=== PATIENT | female | born 1965 | race Hispanic/Latino ===

== ENCOUNTER 2023-12-14 08:35 | Observation (INO) | payer BC ==
--- OUTSIDE RECORDS SUMMARY | 2023-12-14 08:38 | XMS REPORT | Continuity of Care Document ---
Author Name Unknown Address [address] [place] [address] thconnect Address 1200 [facility] 1 495 [place] [address] Care Team Providers Care Repairing Calibrator Name Role Phone GERMAIN FERGUSON Attending Clinician Unavaila PARISH Bond Attending Clinician Unavailable ASTON Attending Clinician Unavailable Axel Attending Clinician Unavailable CLARA EAGLE Attending Clinician Unavailable SHANNAN ORTEGA Attending Clinician Unavailable GERMAIN FERGUSON Admitting Clinician Unavaildavian CLANCY Admitting Clinician Unavailable Axel Admitting Clinician Unavailable Payers Payer Name Policy Type Policy Number Effective Date Expirati on Date Source [place] [id number] 2015 00:00:00 Problems Condition Name Condition Details Condition Category Status Onset Date Resolution Date Last Treatment Date Treating Clinician Comments Source Microscopi c hematuria Microscopi c Hematuria Problem Active 03-30 00:00: 00 [facility] Gynecologi c examinatio n Gynecologi c Examinatio n Problem Active 03-30 00:00: 00 [facility] Screening for malignant neoplasm of breast Screening for Malignant Neoplasm of Breast Problem Active 03-30 00:00: 00 [facility] Carpal tunnel syndrome Carpal Tunnel Syndrome Problem Active [facility] Urinary tract infectious disease Urinary Tract Infectious Disease Problem Active [facility] Elevated blood-pres sure reading without diagnosis of hypertensi on Elevated Blood-pres sure Reading without Diagnosis of Hypertensi on Problem Active [facility] Social History Smoking Status Start Date Stop Date Source Never Smoker [facility] Vital Signs Vital Name Observation Time Observation Value Comments S ource BP Diastolic 2018-03-30 00:00:00 88 mm[Hg] [facility] Height 2018-03-30 00:00:00 60 [facility]in_i[facility] BMI (Body Mass Index) 2018-03-30 00:00:00 27.7 kg/m2 [facility] dical [facility] BP Systolic 2018-03-30 00:00:00 142 mm[Hg] [facility] Body Weight 2018-03-30 00:00:00 142 [lb_av] [facility] Procedures Procedure Date / Time Performed Performing Clinicia n Source unlisted imaging order 2018-03-30 00:00:00 [facility] Plan of Care Planned Activity Planned Date Details Comments Source Diagnostic Test Pending 2018-03-30 00:00:00 pap test, thinprep, cervical [code = pap test, thinprep, cervical] [facility] Diagnostic Test Pending 2018-03-30 00:00:00 urinalysis, dipstick [code = urinalysis, dipstick] [facility] Diagnostic Test Pending 2018-03-30 00:00:00 culture, urine [code = culture, urine] [facility] Encounters Start Date/Time End Date/Time Encounter Type Admission Type Attending Clinicians Care Facility Care Department Encounter ID Source 2023-12-12 02:31:00 2023-12-13 16:20:00 Inpatient ER [facility]DRAKIR[facility] MED [id number] [facility] 2022-06-16 23:22:00 2022-06-17 04:39:00 Emergency ER PARISH OBRIEN [facility] [id number] [facility] 2021-10-01 09:52:00 2021-10-01 09:52:00 Outpatient LISTER_MELI SSA SABINO GALLO [id number] [facility] Program 2019-03-30 01:36:00 2019-03-30 01:36:00 Outpatient G_Pappas MMG MMG [id number] [facility] 2018-03-30 13:22:00 2018-03-30 13:22:00 Outpatient CLARA BHATTI [facility] [id number] [facility] 2018-03-30 00:00:00 2018-03-30 00:00:00 Clara Eagle, WHNP: [address] [place] [address] , Ph. [phone] [facility] [place] [id number] [facility] 2017-01-04 10:14:00 2017-01-04 10:14:00 Outpatient SHANNAN BROOKS [facility] [id number] [facility] 2016-01-29 11:24:00 2016-01-29 11:24:00 Outpatient SHANNAN BROOKS [facility] [id number] [facility] Results Test Description Test Time Test Comments Results Result Co mments Source [facility]
[2023-12-14 09:14] LABS: Absolute Basophils 0.1 K/uL (0-0.5); Absolute Eosinophils 0.1 K/uL (0-0.5); Absolute Lymphocytes (CBC) 1.5 K/uL (0.7-4.9); Absolute Monocytes 0.5 K/uL (0.1-1.3); Basophils % 0.9 % (0-1.3); Eosinophils % 1.2 % (0-4.4); Hematocrit 44.1 % (36.0-45.0); Hemoglobin 14.7 g/dL (12.0-15.0); Lymphocytes % 20.7 % (15.3-44.8); MCH 27.9 pg (27.0-35.0); MCHC 33.3 g/dL (32.0-36.0); MCV 83.9 fL (80-100); MPV 7.2 fL (7.6-11.3); Monocytes % 7.6 % (3.3-12.3); Neutrophils % 69.6 % (41.7-73.7); Nucleated Red Blood Cells % 0.2 % (0-0); Platelets 310 thou/uL (152-406); RBC Red Blood Cell Count 5.25 M/uL (3.86-4.86); Red Cell Distribution Width 12.8 % (12.1-15.2)
[2023-12-14 09:15] LABS: PT Prothrombin Time 11.8 SECONDS (9.4-12.5); Protime INR 1.06
[2023-12-14 09:32] LABS: Anion Gap 8.3 mEq/L (5.0-15.0); Potassium 3.3 mEq/L (3.5-5.1); Troponin High Sensitivity 8.4 pg/mL (<58.9)
--- NOTE | 2023-12-14 09:35 | ER ---
Nurse's Notes [facility] Name: Yen Rain Age: 58 yrs Sex: Female : 1965 Arrival Date: 12/14/2023 Time: 08:35 Bed 14 Private MD: Diagnosis: Unstable angina Presentation: 12/13 08:45 Chief complaint: Patient states: SENT BY DR MICHEL FOR HEART CATH, ABNORMAL STRESS TEST bp YESTERDAY. Coronavirus screen: At this time, the client does not indicate any symptoms associated with coronavirus-19. Ebola Screen: No symptoms or risks identified at this time. Initial Sepsis Screen: Does the patient meet any 2 criteria? No. Patient's initial sepsis screen is negative. Does the patient have a suspected source of infection? No. Patient's initial sepsis screen is negative. Risk Assessment: Do you want to hurt yourself or someone else? Patient reports no desire to harm self or others. Onset of symptoms is unknown. 08:45 Method Of Arrival: Ambulatory bp 08:45 Acuity: HANSA 3 bp Triage Assessment: 08:47 General: Appears in no apparent distress. Behavior is appropriate for age. Pain: bp Complains of pain in chest. EENT: No deficits noted. Neuro: No deficits noted. Cardiovascular: Rhythm is sinus rhythm. Respiratory: No deficits noted. GI: No signs and/or symptoms were reported involving the gastrointestinal system. : No signs and/or symptoms were reported regarding the genitourinary system. Derm: No deficits noted. Historical: - Allergies: 08:47 No Known Allergies; bp - Home Meds: 08:47 None [Active]; bp - PMHx: 08:47 None; bp - Immunization history:: Adult Immunizations up to date. - Infectious Disease History:: Denies. - Social history:: Smoking status: Patient denies any tobacco usage or history of. Screenin:48 [facility] ED Fall Risk Assessment (Adult) History of falling in the last 3 months, bp including since admission No falls in past 3 months (0 pts) Confusion or Disorientation No (0 pts) Intoxicated or Sedated No (0 pts) Impaired Gait No (0 pts) Mobility Assist Device Used No (0 pt) Altered Elimination No (0 pt) Score/Fall Risk Level 0 - 2 = Low Risk. Abuse screen: Denies threats or abuse. Denies injuries from another. Nutritional screening: No deficits noted. Tuberculosis screening: No symptoms or risk factors identified. Assessment: 09:24 Reassessment: Patient appears in no apparent distress at this time. Patient and/or db family updated on plan of care and expected duration. Pain level reassessed. Patient is alert, oriented x 3, equal unlabored respirations, skin warm/dry/pink. Reassessment: SENT BY SUPPLY CHAIN DEVELOPMENT MANAGER. STATES HAD CHEST PAIN LAST TUESDAY. General: Appears in no apparent distress. comfortable, Behavior is calm, cooperative. 09:54 Reassessment: Patient appears in no apparent distress at this time. Patient and/or db family updated on plan of care and expected duration. Pain level reassessed. Patient is alert, oriented x 3, equal unlabored respirations, skin warm/dry/pink. Pain: Denies pain. Pain does not radiate. Pain began gradually, 2-3 days ago. 11:42 Reassessment: Pt leaving with dairy laboratory technician nurses at this time. Pt A\T\Ox4. cm10 Vital Signs: 08:45 BP 158 / 88; Pulse 61; Resp 16; Temp 97.9; Pulse Ox 97% ; bp 09:00 BP 119 / 76; Pulse 56; Resp 16; Pulse Ox 97% on R/A; db 09:24 Weight 70.31 kg (M); Height 4 ft. 11 in. ; db 11:00 BP 124 / 71; Pulse 60; Resp 19; Pulse Ox 96% on R/A; cm10 09:24 Body Mass Index 31.31 (70.31 kg, 149.86 cm) db ED Course: 08:39 Patient arrived in ED. mr 08:42 Carolin Tolbert, RN is Primary Nurse. db 08:46 Triage completed. bp 08:48 Arm band placed on. bp 08:48 Patient has correct armband on for positive identification. bp 08:51 Bernice Zimmer MD is Attending Physician. sd2 09:03 Initial lab(s) drawn, by me, sent to lab. Inserted saline lock: 20 gauge in right db antecubital area, using aseptic technique. Blood collected. Flushed with 10 mL NS. 09:34 Bernice Zimmer MD is Hospitalizing Provider. sd2 09:34 Arabella Diamond MD is Hospitalizing Provider. sd2 09:54 Provided Education on: BUSINESS MANAGEMENT INTERN AND ADMISSION. Client placed on continuous cardiac and db pulse oximetry monitoring. NIBP monitoring applied. teletypesetter monitor on. Pulse ox on. NIBP on. Warm blanket given. Pillow given. :54 No provider procedures requiring assistance completed. Patient maintains SpO2 db saturation greater than 95% on room air. 09:56 XRAY Chest (1 view) In Process Unspecified. EDMS 11:00 Report given to AMAN GUERRIER. db 11:41 Patient admitted, IV remains in place. cm10 Administered Medications: No medications were administered Medication: :54 VIS not applicable for this client. db Outcome: 09:35 Decision to Hospitalize by Provider. sd2 11:41 Admitted to Tent Worker accompanied by nurse, on monitor, cm10 11:41 Condition: good 11:41 Instructed on the need for admit, 11:42 Patient left the ED. cm10 Signatures: Dispatcher [employer] EDAL Smiley Robbins, Reg Reg mr Dino Davidson, RN RN Bernice Pickett MD MD sd2 Carolin Tolbert, AMAN RN Lynn Boggs RN RN cm10
--- NOTE | 2023-12-14 09:35 | EDPHYS ---
Physician Documentation [facility] Name: Yen Rain Age: 58 yrs Sex: Female : 1965 Arrival Date: 12/14/2023 Time: 08:35 Bed 14 Private MD: ED Physician Bernice Zimmer HPI: 12/13 09:24 This 58 yrs old Female presents to ER via Ambulatory with complaints of Chest sd2 Pain. 09:24 58 yo F presents with CC of abnormal stress test. Seen at [facility] on Tuesday for chest sd2 pain and admitted and had abnormal stress test. Told to follow up outpatient. Spoke with Dr. Medeiros, Cardiology, who sent her to the ER to be admitted for heart cath. CP has now resolved and patient with no current symptoms.. Historical: - Allergies: 08:47 No Known Allergies; bp - Home Meds: 08:47 None [Active]; bp - PMHx: 08:47 None; bp - Immunization history:: Adult Immunizations up to date. - Infectious Disease History:: Denies. - Social history:: Smoking status: Patient denies any tobacco usage or history of. ROS: 09:24 Constitutional: Negative for fever, chills, and weight loss, Eyes: Negative for injury, sd2 pain, redness, and discharge, Cardiovascular: Positive for chest pain, Negative for palpitations, and edema, Respiratory: Negative for shortness of breath, cough, wheezing. Abdomen/GI: Negative for abdominal pain, nausea, vomiting, diarrhea. MS/Extremity: Negative for injury and deformity, Skin: Negative for injury, rash, and discoloration, Neuro: Negative for headache, numbness and tingling. Exam: 09:24 Constitutional: This is a well developed, well nourished patient who is awake, alert, sd2 and in no acute distress. Head/Face: Normocephalic, atraumatic. Eyes: EOMI, normal conjunctiva bilaterally Chest/axilla: Normal chest wall appearance and motion. Nontender with no deformity. Cardiovascular: Regular rate and rhythm with a normal S1 and S2. No gallops, murmurs, or rubs. 2+ distal pulses. Respiratory: Lungs have equal breath sounds bilaterally, clear to auscultation and percussion. No rales, rhonchi or wheezes noted. No increased work of breathing, no retractions or nasal flaring. Abdomen/GI: Soft, non-tender, with normal bowel sounds. No guarding or rebound. No evidence of tenderness throughout. Skin: Warm, dry with normal turgor. Normal color with no rashes, no lesions, and no evidence of cellulitis. MS/ Extremity: Pulses equal, no cyanosis. Neurovascular intact. Full, normal range of motion. Psych: Awake, alert, with orientation to person, place and time. Behavior, mood, and affect are within normal limits. 09:24 ECG was reviewed by the Attending Physician. NSR, rate 60, no STEMI criteria Vital Signs: 08:45 BP 158 / 88; Pulse 61; Resp 16; Temp 97.9; Pulse Ox 97% ; bp 09:00 BP 119 / 76; Pulse 56; Resp 16; Pulse Ox 97% on R/A; db 09:24 Weight 70.31 kg (M); Height 4 ft. 11 in. ; db 11:00 BP 124 / 71; Pulse 60; Resp 19; Pulse Ox 96% on R/A; cm10 09:24 Body Mass Index 31.31 (70.31 kg, 149.86 cm) db MDM: 08:51 Patient medically screened. sd2 09:24 Differential diagnosis: Unstable angina, ACS, PTX, PE, dissection among others. HEART sd2 Score: History: Highly Suspicious (2), ECG: Normal (0), Age: > 45 and < 65 years (1), Risk Factors: 1 or 2 risk factors (1), Troponin: < or = 1 x Normal Limit (0), Total Score = 4. Data reviewed: vital signs, nurses notes, lab test result(s), EKG, radiologic studies. Management of patient was discussed with the following: Hospitalist: . Milk Delivery Driver: Dr. Medeiros. Historians other than the Patient: Daughter/Son: Son at , also acts as heavy mobile equipment repairer. 09:34 Counseling: I had a detailed discussion with the patient and/or guardian regarding the sd2 historical points, exam findings, and any diagnostic results supporting the discharge/admit diagnosis, lab results, radiology results, the need for further work-up and treatment in the hospital. 12/13 08:49 Order name: Basic Metabolic Panel; Complete Time: 09:33 bp 12/13 08:49 Order name: CBC with Diff; Complete Time: 09:33 bp 12/13 08:49 Order name: NT PRO-BNP; Complete Time: 09:33 bp 12/13 08:49 Order name: PT-INR; Complete Time: 09:16 bp 12/13 08:49 Order name: Troponin HS; Complete Time: 09:33 bp 12/13 10:17 Order name: Basic Metabolic Panel EDMS 12/13 10:17 Order name: Basic Metabolic Panel EDMS 12/13 10:17 Order name: Basic Metabolic Panel EDMS 12/13 10:17 Order name: CBC with Automated Diff EDMS 12/13 10:17 Order name: CBC with Automated Diff EDMS 12/13 10:17 Order name: CBC with Automated Diff EDMS 12/13 10:17 Order name: Lipid Profile EDMS 12/13 10:17 Order name: Lipid Profile; Complete Time: 17:39 EDMS 12/13 08:49 Order name: XRAY Chest (1 view); Complete Time: 10:02 bp 12/13 10:17 Order name: Echo with Doppler EDMS 12/13 08:49 Order name: EKG; Complete Time: 08:50 bp 12/13 10:17 Order name: CONS Physician Consult EDMS 12/13 08:49 Order name: Cardiac monitoring; Complete Time: 08:56 bp 12/13 08:49 Order name: EKG - Nurse/Tech; Complete Time: 08:56 bp 12/13 08:49 Order name: IV Saline Lock; Complete Time: 09:09 bp 12/13 08:49 Order name: Labs collected and sent; Complete Time: 09:09 bp 12/13 08:49 Order name: O2 Per Protocol; Complete Time: 08:56 bp 12/13 08:49 Order name: O2 Sat Monitoring; Complete Time: 08:56 bp Administered Medications: No medications were administered Disposition Summary: 12/14/23 09:35 Hospitalization Ordered Notes: Hospitalization Status: Inpatient Admission sd2 Provider: Arabella Diamond Location: Telemetry/MedSurg (Inpatient) sd2 Condition: Stable sd2 Problem: new sd2 Symptoms: have improved sd2 Bed/Room Type: Standard sd2 Room Assignment: sd2 Diagnosis - Unstable angina sd2 Forms: - Medication Reconciliation Form sd2 - SBAR form sd2 - Leadership Thank You Letter sd2 Signatures: Dispatcher [employer] EDMS Dino Davidson, RN RN Bernice Pickett MD MD sd2 Corrections: (The following items were deleted from the chart) 08:50 08:50 BASIC METABOLIC PANEL+C.LAB.BRZ ordered. EDMS EDMS 08:50 08:50 CBC+H.LAB.BRZ ordered. EDMS EDMS 08:50 08:50 PROBNP+C.LAB.BRZ ordered. EDMS EDMS 08:50 08:50 PROTIME (+INR)+COAG.LAB.BRZ ordered. EDMS EDMS 08:50 08:50 Troponin High Sensitivity+C.LAB.BRZ ordered. EDMS EDMS
--- NOTE | 2023-12-14 09:41 | P.HP ---
Certification for Inpatient Patient admitted to: Observation With expected LOS: <2 Midnights Patient will require the following post-hospital care: None Practitioner: I am a practitioner with admitting privileges, knowledge of patient current condition, hospital course, and medical plan of care. Services: Services provided to patient in accordance with Admission requirements found in Title 42 Section 412.3 of the Code of Federal Regulations <Radha Perez - Last Filed: 12/14/23 09:58> Patient History Date of Service: 12/14/23 Reason for admission: Abnormal stress test History of Present Illness: Ms. Rain is a 58-year-old female with no past medical history. She takes no medications, and has had no surgeries. On Tuesday evening/night she developed some chest pain and shortness of breath that lasted roughly 30 minutes and prompted her to be seen at [facility]. While there she had a stress test with abnormal results. She went to see Dr. Medeiros today and was sent to the emergency department for a cardiac cath shortly. Ms. Rain has had no continuation or repeat of symptoms. EKG in the emergency department today with nonspecific ST changes, labs within normal except a potassium of 3.3. Chest x- ray with no acute abnormality. She has been n.p.o. since midnight and will be admitted for continuation of care. Home medications list reviewed: Yes (None) - Past Medical/Surgical History Has patient received pneumonia vaccine in the past: No Past Medical History: Patient denies medical history Past Surgical History: Patient denies surgical history Psychosocial/ Personal History: Lives at home. Her son, Edd, works in the [employer]. - Social History Smoking Status: Never smoker CD- Drugs: No Caffeine use: Yes Place of Residence: Home <Radha Perez - Last Filed: 12/14/23 09:58> Date of Service: 12/14/23 <Arabella Diamond - Last Filed: 12/14/23 17:58> Allergies No Known Allergies Allergy (Unverified 12/14/23 10:30) Home Medications: Pantoprazole [Protonix Tab] 40 mg PO DAILY 30 Days #30 tab 12/14/23 Review of Systems 10-point ROS is otherwise unremarkable General: Unremarkable Eyes: Unremarkable ENT: Unremarkable Respiratory: Unremarkable Cardiovascular: As per HPI Gastrointestinal: Unremarkable Genitourinary: Unremarkable Musculoskeletal: Unremarkable Integumentary: Unremarkable Neurological: Unremarkable Lymphatics: Unremarkable <Radha Perez - Last Filed: 12/14/23 09:58> Physical Examination - Physical Exam General: Alert, In no apparent distress, Oriented x3 HEENT: Atraumatic, Normocephalic Neck: Supple Respiratory: Normal air movement Cardiovascular: No edema, Normal pulses, Regular rate/rhythm Capillary refill: <2 Seconds Gastrointestinal: Normal bowel sounds Musculoskeletal: No clubbing, No swelling Integumentary: No rashes Neurological: Normal speech, Normal tone, Normal affect Lymphatics: No axilla or inguinal lymphadenopathy External genitalia: Deferred Rectal: Deferred - Studies Laboratory Data (last 24 hrs) 12/14/23 12/14/23 12/14/23 09:03 09:03 09:03 WBC 7.10 Hgb 14.7 Hct 44.1 Plt Count 310 PT 11.8 INR 1.06 Sodium 142 Potassium 3.3 L BUN 16 Creatinine 0.74 Glucose 105 <Radha Perez - Last Filed: 12/14/23 09:58> - Studies Laboratory Data (last 24 hrs) 12/14/23 12/14/23 12/14/23 09:03 09:03 09:03 WBC 7.10 Hgb 14.7 Hct 44.1 Plt Count 310 PT 11.8 INR 1.06 Sodium Potassium BUN Creatinine Glucose Triglycerides 77 Cholesterol 124 HDL Cholesterol 56 Cholesterol/HDL Ratio 2.21 12/14/23 09:03 WBC Hgb Hct Plt Count PT INR Sodium 142 Potassium 3.3 L BUN 16 Creatinine 0.74 Glucose 105 Triglycerides Cholesterol HDL Cholesterol Cholesterol/HDL Ratio <Arabella Diamond - Last Filed: 12/14/23 17:58> Assessment and Plan - Plan Unstable angina Aspirin 81 mg p.o. daily LHC at noon today Consult Dr. Medeiros Telemetry Teds Hypokalemia Replete IV secondary to impending cath and patient n.p.o. status VTE/GI prophylaxis - Advance Directives Does patient have a Living Will: No Does patient have a Durable POA for Healthcare: No - Code Status/Comfort Care Code Status Assessed: Yes (Full) <Radha Perez - Last Filed: 12/14/23 09:58> - Plan Pt seen and examined. I agree with the note by the ELECTRONICS PARTS SALES REPRESENTATIVE. Pt is a 58yo female with no past medical history who presents with SOB and chest pain. The chest pain lasted for 30 minutes and pt went to [facility] where she had abnormal stress test . Pt was sent to the ER for higher level of care. The waterproof material folder saw her and recommended cardiac cath. On admission, EKG shows nonspecific ST changes. Lab studies show wbc 7.1, hgb 14.1, K 3.3, Cr 0.73. Chest x-ray with no acute abnormality. At bedside, pt is in NAD. A/P: Chest pain: Will r/o ACS. Pt had abnormal stress test at [facility]. Pt is NPO. Cardiology will do Cardiac cath. Will continue KELSIE therapy. Hypokalemia: k is 3.3. Will replete and monitor. DVT ppx: SCD Code: full <Arabella Diamond - Last Filed: 12/14/23 17:58>
--- NOTE | 2023-12-14 10:00 | RAD REPORT ---
Procedure: Chest Single View History: Chest pain Comparison: none The lungs appear clear of acute infiltrate. No significant pleural effusion noted. The heart is normal size. IMPRESSION: No acute abnormality is displayed.
[2023-12-14] MEDS ORDERED: MORPHINE 4 MG/ML SYR IV PRN (10:09)
[2023-12-14] MEDS ORDERED: MIDAZOLAM HCL 2 MG/2 ML INJ ONE (10:54)
[2023-12-14] MEDS ORDERED: HEPA 1000U/500MLS 2,000 UNIT/1,000 ML BAG IV ONE (10:54)
[2023-12-14] MEDS ORDERED: HEPARIN 10,000 UNIT/10 ML VIAL IV ONE (10:54)
[2023-12-14] MEDS ORDERED: ATROPINE SULF 1 MG/10 ML SYR IV ONE (10:54)
[2023-12-14] MEDS ORDERED: LIDOCAINE 1% 20 ML MDV ONE (10:54)
[2023-12-14] MEDS ORDERED: HEPARIN 5000 UNIT/ML 1 ML VIAL ONE (10:55)
[2023-12-14] MEDS ORDERED: CLOPIDOGREL 75 MG TABLET ONE (10:55)
[2023-12-14] MEDS ORDERED: ASPIRIN 81 MG CHEWABLE TABLET ONE (10:55)
[2023-12-14] MEDS ORDERED: FENTANYL CITR 100 MCG/2 ML ONE (10:55)
[2023-12-14] MEDS ORDERED: TICAGRELOR 90 MG TABLET PO ONE (10:55)
[2023-12-14] MEDS ORDERED: NA CHLORIDE 0.9% 500 ML ONE (10:56)
[2023-12-14] MEDS ORDERED: KCL 20 MEQ/100 mL IVPB 20 MEQ/100 ML BAG IV SCH (11:00)
[2023-12-14] MEDS ORDERED: NA CHLORIDE 0.9% 500 ML IV SCH (11:00)
[2023-12-14 11:52] VITALS: TEMP 97.9
--- NOTE | 2023-12-14 12:30 | P.CNS ---
Date of Consult: 12/14/23 Chief Complaint: Abnormal stress test History of Present Illness: Patient with no significant PMH presented with chest pain that has been going on for a while, left sided, no radiation, patient was seen by cognos bi developer who ordered a stress that was positive for anterior infarct, denies any other cardiac symptoms. Allergies No Known Allergies Allergy (Unverified 12/14/23 10:30) Home medications list reviewed: Yes - Past Medical/Surgical History Psychosocial/ Personal History: Lives at home. Her son, Edd, works in the [employer]. - Social History CD- Drugs: No Caffeine use: Yes Place of Residence: Home Review of Systems 10-point ROS is otherwise unremarkable Physical Examination Temp Pulse Resp BP Pulse Ox 97.9 F 60 19 124/71 12/14/23 08:45 12/14/23 11:00 12/14/23 11:00 12/14/23 11:00 General: Alert, In no apparent distress HEENT: Atraumatic, PERRLA, Mucous membr. moist/pink, EOMI, Sclerae nonicteric Neck: Supple, 2+ carotid pulse no bruit, No LAD, Without JVD or thyroid abnormality Respiratory: Clear to auscultation bilaterally, Normal air movement Cardiovascular: Regular rate/rhythm, Normal S1 S2 Gastrointestinal: Normal bowel sounds, No tenderness Musculoskeletal: No tenderness Integumentary: No rashes Neurological: Normal gait, Normal speech, Normal tone, Normal affect Lymphatics: No axilla or inguinal lymphadenopathy Laboratory Data (last 24 hrs) 12/14/23 12/14/23 12/14/23 09:03 09:03 09:03 WBC 7.10 Hgb 14.7 Hct 44.1 Plt Count 310 PT 11.8 INR 1.06 Sodium Potassium BUN Creatinine Glucose Triglycerides 77 Cholesterol 124 HDL Cholesterol 56 Cholesterol/HDL Ratio 2.21 12/14/23 09:03 WBC Hgb Hct Plt Count PT INR Sodium 142 Potassium 3.3 L BUN 16 Creatinine 0.74 Glucose 105 Triglycerides Cholesterol HDL Cholesterol Cholesterol/HDL Ratio - Problems (1) Unstable angina Current Visit: Yes Status: Acute Plan: Patient had an abnormal stress test, will proceed with coronary angiogram (2) HTN (hypertension) Current Visit: Yes Status: Acute Plan: start Amlodipine 5 mg daily
--- NOTE | 2023-12-14 13:34 | P.DS ---
Admission Date: 12/14/23 Discharge Date: 12/14/23 Disposition: ROUTINE DISCHARGE Discharge Condition: GOOD Reason for Admission: Abnormal stress test Brief History of Present Illness: Ms. Rain is a 58-year-old female with no past medical history. She takes no medications, and has had no surgeries. On Tuesday evening/night she developed some chest pain and shortness of breath that lasted roughly 30 minutes and prompted her to be seen at [facility]. While there she had a stress test with abnormal results. She went to see Dr. Medeiros today and was sent to the emergency department for a cardiac cath shortly. Ms. Rain has had no continuation or repeat of symptoms. EKG in the emergency department today with nonspecific ST changes, labs within normal except a potassium of 3.3. Chest x- ray with no acute abnormality. She has been n.p.o. since midnight and will be admitted for continuation of care. Hospital Course: Pt is a 58yo female with no past medical history who presented with SOB and chest pain. The chest pain lasted for 30 minutes and pt went to [facility] where she had abnormal stress test. Pt was sent to the ER for higher level of care. The marketing trainee saw her and recommended cardiac cath. Cardiac cath showed normal coronary arteries. We repleted potassium. The Mail Manager cleared her for discharge. We gave her Protonix for possible GERD. Pt was advised to follow up with PCP in clinic. Vital Signs/Physical Exam: Temp Pulse Resp BP Pulse Ox 97.9 F 56 16 124/70 12/14/23 08:45 12/14/23 13:25 12/14/23 13:25 12/14/23 13:25 Laboratory Data at Discharge: WBC 7.10 thou/uL (4.3-10.9) 12/14/23 09:03 Hgb 14.7 g/dL (12.0-15.0) 12/14/23 09:03 Hct 44.1 % (36.0-45.0) 12/14/23 09:03 Plt Count 310 thou/uL (152-406) 12/14/23 09:03 PT 11.8 SECONDS (9.4-12.5) 12/14/23 09:03 INR 1.06 12/14/23 09:03 Sodium 142 mEq/L (136-145) 12/14/23 09:03 Potassium 3.3 mEq/L (3.5-5.1) L 12/14/23 09:03 BUN 16 mg/dL (7-18) 12/14/23 09:03 Creatinine 0.74 mg/dL (0.55-1.02) 12/14/23 09:03 Glucose 105 mg/dL (74-106) 12/14/23 09:03 Triglycerides 77 mg/dL (<150) 12/14/23 09:03 Cholesterol 124 mg/dL (<200) 12/14/23 09:03 HDL Cholesterol 56 mg/dL (40-60) 12/14/23 09:03 Cholesterol/HDL Ratio 2.21 12/14/23 09:03 Home Medications: Pantoprazole [Protonix Tab] 40 mg PO DAILY 30 Days #30 tab 12/14/23 New Medications: Pantoprazole [Protonix Tab] 40 mg PO DAILY 30 Days #30 tab Physician Discharge Instructions: Continue ad arnaldo activity as tolerated. Take Protonix 40mg po daily for 30 days. Follow up with PCP within 1 - 2 weeks. Diet: AHA Activity: Ad arnaldo Followup: NONE,NONE [Primary Care Provider] -
[2023-12-14 13:45] VITALS: O2SAT 98
[2023-12-14 14:15] VITALS: BMI 31.3
[2023-12-14 14:50] VITALS: BP 128/67
--- NOTE | 2023-12-14 19:06 | OP ---
Date of Procedure: 12/14/2023 Surgeon: Bryce Medeiros Procedure Performed: Selective coronary angiogram. Indication For Procedure: Unstable angina, abnormal stress test. Complications: None. Estimated Blood Loss: Less than 50 cc. Access: Right radial, closed by TR band. Sedation Time: 20 minutes with 2 of Versed and 50 of fentanyl. Description Of Procedure: After the risks, and benefits, and alternatives were explained to the patient, the patient agreed to proceed with the procedure and signed informed consent. The patient was brought back to the central lab technician, prepped and draped in sterile fashion. Time-out was performed. Sedation was administered. Next, a right radial ultrasound access was obtained. [place] 4.0 catheter was advanced over a J-wire to the aortic root. Catheter was used for selective angiogram for left and right coronary artery systems. At the end of procedure, catheter was removed over the J-wire. Sheath was removed. TR band was applied. Hemostasis was achieved and patient was moved back to recovery in stable condition. Findings: 1. Left main normal. 2. LAD; large, normal. 3. Diagonal 1; large and normal. 4. Left circ; dominant, normal. 5. Left PDA normal. 6. RCA; small, nondominant. mild LI. Assessment And Plan: Normal coronaries. 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 MARCUS/DEMARCUS Voice ID: [id number] Report ID: [id number] IRAIS
[2023-12-14] MEDS ORDERED: ATORVASTATIN 40 MG TAB PO SCH (21:00)
[2023-12-15] MEDS ORDERED: ASPIRIN EC 81 MG TAB PO SCH (09:00)
--- NOTE | 2023-12-15 12:12 | EKG ---
Test Date: 2023-12-14 Test Time: 08:52:50 Surgeon Partner: PERLA MEASUREMENT RESULTS: Intervals: Rate: 60 NC: 138 QRSD: 92 QT: 430 QTc: 430 [place]: P: 65 NC: 138 QRS: 28 T: 33 INTERPRETIVE STATEMENTS: Normal sinus rhythm Nonspecific T wave abnormality Abnormal ECG No previous ECG available for comparison Electronically Signed On 12-15-23 12:09:23 CDT by Bryce Medeiros
== END 2023-12-14 15:00 | disposition home or self-care (01) ==
LOC: ER 08:35 → ERHOLD 10:09
PROVIDERS: ADMIT Hospitalist; ATTEND Hospitalist
PROC: B2111ZZ Fluoroscopy of Multiple Coronary Arteries using Low Osmolar Contrast (ICD-10-PCS; principal; 2023-12-14)
DX: I20.0 Unstable angina (principal); I10 Essential (primary) hypertension; R94.39 Abnormal result of other cardiovascular function study; E87.6 Hypokalemia; R06.02 Shortness of breath
CPT/HCPCS: 85025; 80048; 36415; 85610; 80061; 84484; 83880; 71045; 93454; 76937; C1893; Q9966; 93005; 99152; 99285; G0378; J0461; J1644; J2001; J2250; J3010; J7040